=== PATIENT | female | born 1990 | race Caucasian/White ===

== ENCOUNTER 2023-06-19 16:13 | Outpatient (CLI) | payer OTHER | END 2023-06-19 16:14 | disposition home or self-care (01) | LOC: ULT 16:13 | PROVIDERS: ATTEND Nurse Practitioner Family | DX: N92.0 Excessive and frequent menstruation with regular cycle (principal); D25.9 Leiomyoma of uterus, unspecified; Z11.52 Encounter for screening for COVID-19 | CPT/HCPCS: 76856; 87635 ==